=== PATIENT | male | born 1955 | race Caucasian/White ===

== ENCOUNTER 2017-12-06 16:12 | Inpatient (IN) | payer BC ==
[~2017-12-06 16:12] MED LIST: Dexamethasone 20 MG/5 ML VIAL ONE; Glycopyrrolate 0.2 MG/ML 5 ML SYRINGE ONE; ISOVUE-370 76%-LOCM 1 ML ONE; Lidocaine 1% PF 5 ML VIAL ONE; Ondansetron HCl/PF 4 MG/2 ML Vial ONE; PROPOFOL 200 MG/20 ML VIAL ONE; Succinylcholine Chloride 20 MG/ML 10 ml SYRINGE FS ONE
[2017-12-06 17:43] LABS: Protein, Urine (Dipstick) > or equal to 300 mg/dL (Neg-Trace)
[2017-12-06 17:44] LABS: Clarity Opaque (Clear)
[2017-12-06 17:48] LABS: Specific Gravity, Urine 1.024 (1.002-1.036)
[2017-12-06 17:49] LABS: Bilirubin Negative (Negative); Blood, Urine Large (Negative); Glucose, Urine (Dipstick) Unable to Interpret mg/dL (Negative); Leukocyte Unable to Interpret (Negative); Nitrite Unable to Interpret (Negative); Urobilinogen UNABLE TO INTERPRET mg/dL (0.2-1.0)
[2017-12-06 17:50] LABS: RBC/HPF GREATER THAN 50-TNTC HPF (0-3)
[2017-12-06 17:55] LABS: Bacteria/HPF None Seen HPF (None Seen); Hyaline Casts/LPF NONE SEEN LPF (0-3 Hyaline); Squamous Epithelial None Seen HPF (0-3)
[2017-12-06 18:31] LABS: #Basophils 0.1 thou/uL (0.0-0.2); #Eosinphils 0.1 thou/uL (0.0-0.7); #Monocytes 0.6 thou/uL (0.11-0.59); #Neutrophils 7.6 thou/uL (1.40-6.50); %Basophils 0.9 % (0.0-1.0); %Eosinophils 1.3 % (0.0-10.0); %Lymphocytes 19.1 % (21.0-51.0); %Monocytes 5.8 % (0.0-10.0); %Neutrophils 72.9 % (42.0-75.0); Hemoglobin 15.1 g/dL (14.0-18.0); Mean Corpuscular HGB CONC 34.7 g/dL (32.0-36.0); Mean Corpuscular Hemoglobin 32.5 pg (27.0-31.0); Mean Corpuscular Volume 93.8 fl (80.0-94.0); Mean Platelet Volume 7.5 fL (7.4-10.4); Platelet Count 244 thou/uL (130-400); RBC Distribution Width 11.8 % (11.5-14.5); Red Blood Cell (RBC) Count 4.65 mill/uL (4.70-6.10); White Blood Cell (WBC) Count 10.4 thou/uL (4.8-10.8)
[2017-12-06 18:38] LABS: Prothrombin Time 13.7 SEC (12.0-14.7)
[2017-12-06 18:39] LABS: PTT 27.6 SEC (22.9-36.1)
[2017-12-06 18:52] LABS: ALT (SGPT) 21 U/L (8-55); AST (SGOT) 17 U/L (5-34); Albumin 4.2 g/dL (3.5-5.0); Alkaline Phosphatase 79 U/L (40-150); Anion Gap 12 mmol/L (10-20); BUN (Urea Nitrogen) 23 mg/dL (8.4-25.7); Bilirubin, Total 0.3 mg/dL (0.2-1.2); Calc. Creatinine Clearance 0 mL/min (70-130); Calcium 9.2 mg/dL (7.8-10.44); Carbon Dioxide 24 mmol/L (22-29); Chloride 108 mmol/L (98-107); Estimated GFR-MDRD 83; Globulin 2.8 g/dL (2.4-3.5); Glucose 117 mg/dL (70-105); Potassium 4.3 mmol/L (3.5-5.1); Sodium 140 mmol/L (136-145)
[2017-12-06] MEDS ORDERED: Morphine 4 MG/ML VIAL ONE (20:49)
--- NOTE | 2017-12-06 20:49 | CT ---
PRE AND POSTCONTRAST ENHANCED CT IMAGES ABDOMEN AND PELVIS: 12/06/17 HISTORY: Hematuria. Pre and postcontrast enhanced CT images of the abdomen and pelvis demonstrate the lung bases to be un remarkable. No evidence of free intraperitoneal air seen. The liver and spleen are unremarkable. There does appear to be a cyst in the medial aspect of the lef t hepatic lobe without evidence of enhancement. No other hepatic lesions seen. A tiny gallstone is se en. Adrenal glands are unremarkable. Bilateral peripelvic renal cyst seen. There is no definite evidence of renal masses seen. No evidence of hydroureteronephrosis seen. There is a Krishnan catheter within the urinary bladder with a small amount of gas. There is a soft tissue density surrounding the balloon o f the Krishnan catheter which is most compatible with blood clot. No evidence of definite bladder masses seen. The small bowel was unremarkable. A normal appendix is visualized. The colon is unremarkable. Small sclerotic areas seen, one in the left sacral ala and one in the left iliac bone. These may repr esent bone islands although tiny early metastatic lesions cannot be completely excluded. IMPRESSION: Soft tissue density within the urinary bladder most compatible with blood clot. No definite evidence of renal masses seen. The ureters ------- are decompressed without evidence of hydronephrosis. POS: [facility]
[2017-12-06] MEDS ORDERED: Fentanyl 100 MCG/2 ML VIAL ONE ×2 (21:21→23:36)
[2017-12-06] MEDS ORDERED: Fentanyl 250 MCG/5 ML VIAL ONE (21:25)
[2017-12-06] MEDS ORDERED: Zolpidem Tartrate 5 MG TAB PO PRN (22:18)
[2017-12-06] MEDS ORDERED: Sodium Chloride 0.9% 1,000 ML IV SCH ×2 (22:18→23:30)
[2017-12-06] MEDS ORDERED: Mag-Al 1200 mg/1200 mg/30 ML UDCUP PO PRN (22:18)
[2017-12-06] MEDS ORDERED: Acetaminophen 325 MG TAB PO PRN (22:18)
[2017-12-06] MEDS ORDERED: Milk Of Magnesia 30 ML UDCUP PO PRN (22:18)
[2017-12-06] MEDS ORDERED: Senokot 8.6 MG TAB PO PRN (22:18)
[2017-12-06] MEDS ORDERED: HYDROcodone/Acetaminophen 5/325 mg Tablet PO PRN (22:18)
[2017-12-06] MEDS ORDERED: Ondansetron ODT 4 MG TAB PO PRN (22:18)
[2017-12-06] MEDS ORDERED: Loperamide HCl 2 MG CAP PO PRN (22:18)
[2017-12-06] MEDS ORDERED: Ondansetron HCl/PF 4 MG/2 ML Vial IVP PRN (22:18)
[2017-12-06] MEDS ORDERED: SUGAMMADEX SODIUM 500 MG/5 ML VIAL ONE ×2 (23:02→23:05)
[2017-12-06] MEDS ORDERED: Hyoscyamine Sulfate SL 0.125 mg Tablet ONE (23:16)
[2017-12-06] MEDS ORDERED: Morphine 4 MG/ML VIAL SLOW IVP PRN ×2 (23:22)
[2017-12-06] MEDS ORDERED: diphenhydrAMINE 50 MG/ML VIAL IVP PRN (23:22)
[2017-12-06] MEDS ORDERED: Acetaminophen 500 MG TAB PO PRN (23:22)
[2017-12-06] MEDS ORDERED: hydrALAZINE 20 MG/ML VIAL SLOW IVP PRN ×2 (23:22)
[2017-12-06] MEDS ORDERED: Promethazine HCl 25 MG/ML VIAL SLOW IVP PRN (23:29)
[2017-12-06] MEDS ORDERED: HYDROmorphone 2 MG/ML VIAL SLOW IVP PRN (23:29)
[2017-12-06] MEDS ORDERED: Promethazine HCl 25 MG/ML VIAL IM PRN (23:29)
[2017-12-06] MEDS ORDERED: Labetalol HCl 100 MG/20 ML VIAL ONE (23:32)
[2017-12-06] MEDS ORDERED: Labetalol HCl 100 MG/20 ML VIAL SLOW IVP PRN (23:44)
[2017-12-07 00:38] VITALS: BMI 35.2
--- NOTE | 2017-12-07 00:53 | CON ---
DATE OF CONSULTATION: 12/06/2017 REASON FOR CONSULT: Gross hematuria, clot retention. HISTORY OF PRESENT ILLNESS: Mr. Barnes is a pleasant male who presents with his . There is a history of intermittent gross hematuria with spontaneous clearing over the last few months. He denies history of recurrent UTI, history of STDs, decreased urinary caliber, or prior history of urinary retention. An 18-Bhutanese 2-way Krishnan catheter was placed by the emergency room, as they were unable to pass a 3-way Krishnan catheter. There was immediate 300 mL of urine bloody, he had some relief of his retention. He has had intermittent sensation of incomplete void with the Krishnan catheter. I did request a CT scan hematuria protocol, which demonstrates a very large bladder clot. There is no hydronephrosis with bilateral peripelvic renal cyst. At bedside, I did replace his Krishnan catheter 2-way, 24-Bhutanese three-way Krishnan catheter. I was able to evacuate some clots; however, significant clot remains as I am unable to clear his blood clot through a 3-way Krishnan catheter. Therefore, patient advised regarding intraoperative evaluation, evacuation of clots. PAST MEDICAL HISTORY: Remote history of kidney stones, did not require surgical intervention, anxiety. PAST SURGICAL HISTORY: Denies. SOCIAL HISTORY: Lives with his . Good family support. Denies illicit drug use, occasional cigarettes. Works as a pipe construction, often lifts heavy objects, which exacerbates gross hematuria with spontaneous clearing. ALLERGIES: No known drug allergies. HOME MEDICATIONS: Include Zoloft 50 mg 1 p.o. daily. Denies blood thinner use. PHYSICAL EXAMINATION: GENERAL: Patient is somewhat distress due to bladder spasms with urinary retention. Cooperative physical examination. Pleasant. VITAL SIGNS: Stable, afebrile; however, he is somewhat hypertensive, most likely due to pain component. He is 158/90, 81, 18, 97% on room air. HEENT: Grossly unremarkable. HEART: Regular rate. LUNGS: Clear. ABDOMEN: Soft, obese, protuberant. There is some suprapubic tenderness. NEUROLOGIC: No gross distention is grossly appreciated. GENITOURINARY: Preexisting Krishnan catheter was removed and a new 24-Bhutanese three -way Krishnan catheter was placed by myself. I manually irrigated at bedside, however, no significant success of evacuating successfully, minor amount of clots were evacuated. His catheter was attached to a gravity bag. Scrotum is unremarkable. RECTAL: Digital rectal exam demonstrates prostate approximately 35 grams with no discrete nodularity. EXTREMITIES: No cyanosis, clubbing, or edema. IMAGING: CT hematuria protocol. Bilateral parapelvic cysts with no evidence of hydronephrosis. No significant lymphadenopathy. There is a large blood clot, most of the bladder was filled with the blood clot. Prostate volume is approximately 25-30 grams. LABORATORY DATA: White count 10, hemoglobin 15, platelets 244. PTT 27. INR is 1.0. LFTs are unremarkable. Creatinine 0.95. UA demonstrates red, greater than 300 protein, large blood, greater than 50 wbc's, 7-10 wbc's, no epithelial , no bacteria. Culture has been sent. IMPRESSION/PLAN: Mr. Barnes is a pleasant 62-year-old male who presents with intermittent history of gross hematuria, currently in clot retention. As I am unable to irrigate his catheter at bedside, for relief he will go to the OR emergently clarification, possible TURBT, possible TURP was reviewed with patient and family in detail and they desired to proceed without reservation. Tommie on-call to OR. SOFIA
[2017-12-07] MEDS: Sodium Chloride 0.9% 1,000 ML IV SCH ×4 (01:01→15:15)
--- NOTE | 2017-12-07 01:06 | OP ---
DATE OF EXAMINATION: 12/06/2017 PREOPERATIVE DIAGNOSES: Gross hematuria with clot retention, bladder mass. POSTOPERATIVE DIAGNOSIS: Large left lateral bladder tumor measuring 5.0 x 5.[address] PROCEDURE: Cystoscopy, evacuation of clots, transurethral resection of bladder tumor. SURGEON: Oneida Dennison D.O. ANESTHESIA: General. COMPLICATIONS: None apparent. DISPOSITION: To recovery room in stable condition. SPECIMEN: TUR bladder tumor, superficial and deep sent separately. INDICATIONS FOR THE PROCEDURE AND HISTORY: Mr. Barnes is a 62-year-old male who presented to the emergency room due to worsening gross hematuria which has been present for the last few months with spontaneous clearing. He is hemodynamically stable. H&H stable. CT demonstrates a large bladder mass, I was unable to irrigate him free of clot retention in the ER at bedside; therefore, the patient transitioned emergently to the OR for evacuation of clots , possible TURBT, possible TURP. Differential diagnosis and indications reviewed with patient in detail including, but not limited to, bleeding, pain, infection, injury to adjacent organs, bladder perforation, ureteral orifice injury, PE, DVT was reviewed with him in detail and he desired to proceed. DESCRIPTION OF THE PROCEDURE: After an informed consent is signed, the patient is taken to the operating room, placed in a dorsal lithotomy position with the genital area prepped and draped in the usual surgical sterile fashion. Using a 26-Haitian resectoscope with visual obturator, we passed the resectoscope to the level of the bladder. He has bilobar hyperplasia mildly obstructing, he has a high median bar. Upon entering the bladder, we evacuated clots approximately 120-150 mL of clots were evacuated. We then passed the resectoscope with gyrus bipolar bladder loop. With suction irrigation and continuous irrigation, we were able to visualize a large sessile papillary tumor in the left lateral wall , approximately 2 cm superior to the left ureteral orifice. Bilateral clear efflux of urine was noted. No other lesions were found. We perform transurethral resection of bladder tumor, superficial and deep tumors were sent separately. The bed of the tumor was cauterized and we sent a deep muscle layer separately. We obtained great hemostasis. There were some superficial varicosities of the trigone, which was fulgurated. Prostatic urethra demonstrated some oozing due to recent catheterization and instrumentation. A 22 Haitian three-way Krishnan catheter was passed and 30 mL of sterile water insufflated with light pink output. CBI port is plugged. We will monitor his urine output. Disposition to the recovery room in stable condition. SOFIA
--- NOTE | 2017-12-07 01:12 | HP ---
PRIMARY CARE PHYSICIAN: Fidel Matos M.D. REASON FOR ADMISSION: Gross hematuria. HISTORY OF PRESENT ILLNESS: A 62-year-old male with no significant past medical history other than anxiety and depression, who came to emergency room for evaluation of gross hematuria. The patient reports that he has intermittent hematuria for last several months, probably about 6 month. This morning he was having increased amount of blood in urine and he was feeling difficulty urination. He was not having any dysuria, fever, or chills. He reports that he gained weight. He denies any weight loss. He denies any retention of urine. He denies any abdominal pain. The patient also noticed intermittent excretion of blood clot as well in past. He had a CT abdomen and pelvis in the emergency room today, which showed soft tissue density in the urinary bladder. Subsequently, patient was taken to OR and Dr. Dennison did cystoscope and found with a bladder tumor, which was resected. Subsequently, patient was on bladder irrigation and patient is being admitted to surgical floor. Patient received antibiotic therapy with levofloxacin. REVIEW OF SYSTEMS: The following complete review of systems was negative, unless otherwise mentioned in the HPI or below: Constitutional: Weight loss or gain, ability to conduct usual activities. Skin: Rash, itching. Eyes: Double vision, pain. ENT/Mouth: Nose bleeding, neck stiffness, pain, tenderness. Cardiovascular: Palpitations, dyspnea on exertion, orthopnea. Respiratory: Shortness of breath, wheezing, cough, hemoptysis, fever or night sweats. Gastrointestinal: Poor appetite, abdominal pain, heartburn, nausea, vomiting, constipation, or diarrhea. Genitourinary: Urgency, frequency, dysuria, nocturia. Musculoskeletal: Pain, swelling. Neurologic/Psychiatric: Anxiety, depression. Allergy/Immunologic: Skin rash, bleeding tendency. Please see my HPI for pertinent positive and negative. All other review of systems reviewed and negative except as mentioned in the HPI. CURRENT HOME MEDICATIONS: Zoloft 50 mg p.o. daily. PAST MEDICAL HISTORY: Reviewed and negative. PAST SURGICAL HISTORY: Vasectomy. PAST PSYCHIATRIC HISTORY: Anxiety and depression. SOCIAL HISTORY: The patient is smoking about a few cigarettes on a daily basis. He drinks alcohol socially. He denies any illicit drug abuse. FAMILY HISTORY: Heart disease to his father, but no strong family history of premature coronary artery disease, stroke, or cancer. ALLERGIES: No known drug allergy. EMERGENCY ROOM COURSE: Patient was given Levaquin 750 mg, morphine 2 mg. PHYSICAL EXAMINATION: VITAL SIGNS: On arrival, blood pressure 163/114, pulse 102, respiratory rate 20 , temperature 98.1, saturation 95% on room air, weight 112.5 kilograms. GENERAL: Patient is currently alert, awake, no acute distress. HEENT: Head, normocephalic, atraumatic. Eyes: Pupils round, reactive to light. Extraocular muscle intact. ENT, oropharynx within normal limits. Moist mucous membranes. No oral lesion, no pharyngeal erythema, no exudate. NECK: Supple, no JVD, no thyromegaly, no carotid bruit, no jugular venous distention. LUNGS: Clear to auscultation without any rhonchi or rales. CARDIAC: S1, S2 regular without any murmur. ABDOMEN: Soft, bowel sounds present, nontender, nondistended. No organomegaly , no mass, no suprapubic tenderness. GENITALIA: The patient does have a Krishnan catheter in place and the patient is getting bladder irrigation. EXTREMITIES: No edema. NEUROLOGIC: Nonfocal examination. He moves all 4 limbs. Plantar bilateral flexor. PSYCHIATRIC: Normal affect. Lower extremity, no edema. Good peripheral pulsation. Upper extremity, passive movement of all joints are normal. SIGNIFICANT LABS: CT of the abdomen and pelvis showing soft tissue density within the urinary bladder. CBC: WBC 10.4, hemoglobin 15.1, platelet 244. INR 1.0. BMP: Sodium 140, potassium 4.3, chloride 108, carbon dioxide 24, anion gap 12, BUN 23, creatinine 0.93, glucose 117, calcium 9.2. LFT: AST 17, ALT 21, alkaline phosphatase 79, albumin 4.2. Urinalysis consistent with gross hematuria. ASSESSMENT AND PLAN: 1. Gross hematuria. Patient had cystoscopy done and found with a bladder tumor. Other possibility like benign enlargement of prostate, urinary tract infection excluded already. We will follow up on urine culture result. We will continue with the hyoscyamine for bladder spasm, Flomax 0.4 mg p.o. daily. Patient will be given IV fluid with NS at 150 mL per hour. We will control his pain with morphine 2 to 4 mg q.2 hourly p.r.n. basis. Patient will continue to have bladder irrigation as per Urology. Patient already had bladder tumor resection and will follow up on pathology report. We will continue empiric antibiotic therapy with Levaquin and will follow up on urine culture result. 2. Bladder tumor, status post resection by Dr. Dennison. Urology already consulted and they did already procedure for this patient. We will follow up on pathology report. 3. Anxiety and depression. We will continue Zoloft 50 mg p.o. daily. 4. Elevated blood pressure reading. Patient's blood pressure will be monitored closely while in hospital. At this point, we will use hydralazine and labetalol p.r.n. basis. Based on his blood pressure reading, we will decide to start antihypertensive medication. This could be a new blood pressure diagnosis. 5. Deep venous thrombosis prophylaxis. No Lovenox because of bleeding. Only sequential compression device boots. 6. Gastrointestinal prophylaxis, Pepcid 20 mg p.o. b.i.d. 7. Code status: The patient is FULL CODE. The patient's is surrogate decision maker. Disposition plan based on clinical course. We are expecting patient's stay in hospital more than 2 midnights. Plan of care discussed with the patient in detail. MTDD
[2017-12-07] MEDS: Hyoscyamine Sulfate SL 0.125 mg Tablet SL SCH ×3 (01:14→12:05)
[2017-12-07 04:33] LABS: #Basophils 0.1 thou/uL (0.0-0.2); #Lymphocytes 0.9 thou/uL (1.20-3.40); #Monocytes 0.1 thou/uL (0.11-0.59); #Neutrophils 11.9 thou/uL (1.40-6.50); %Basophils 0.4 % (0.0-1.0); %Eosinophils 0.2 % (0.0-10.0); %Lymphocytes 6.6 % (21.0-51.0); %Monocytes 0.9 % (0.0-10.0); %Neutrophils 91.9 % (42.0-75.0); Hemoglobin 13.8 g/dL (14.0-18.0); Mean Corpuscular HGB CONC 33.9 g/dL (32.0-36.0); Mean Corpuscular Hemoglobin 31.9 pg (27.0-31.0); Mean Corpuscular Volume 94.1 fl (80.0-94.0); Mean Platelet Volume 7.6 fL (7.4-10.4); Platelet Count 205 thou/uL (130-400); RBC Distribution Width 11.8 % (11.5-14.5); Red Blood Cell (RBC) Count 4.32 mill/uL (4.70-6.10)
[2017-12-07 04:45] LABS: Anion Gap 9 mmol/L (10-20); BUN (Urea Nitrogen) 16 mg/dL (8.4-25.7); Calc. Creatinine Clearance 152 mL/min (70-130); Calcium 8.3 mg/dL (7.8-10.44); Carbon Dioxide 25 mmol/L (22-29); Chloride 107 mmol/L (98-107); Estimated GFR-MDRD Greater than 90; Glucose 174 mg/dL (70-105); Potassium 4.1 mmol/L (3.5-5.1); Sodium 137 mmol/L (136-145)
[2017-12-07] MEDS ORDERED: Docusate 100 MG CAP PO SCH (09:00)
[2017-12-07] MEDS ORDERED: Tamsulosin HCl 0.4 MG CAP PO SCH (09:00)
[2017-12-07] MEDS ORDERED: Famotidine 20 MG TAB PO SCH (09:00)
--- NOTE | 2017-12-07 14:47 | PDOC.PN ---
- Subjective Encounter Start Date: 12/07/17 Encounter Start Time: 09:20 Pt seen for followup re: bladder tumor. Denies chest pain, shortness of breath , fevers or chills. No nausea or vomiting. - Objective Resuscitation Status: Resuscitation Status FULL:Full Resuscitation MAR Reviewed: Yes Vital Signs & Weight: Vital Signs (12 hours) Temp Pulse Resp BP Pulse Ox 12/07/17 13:43 96 12/07/17 11:13 97.9 F 83 18 106/64 96 12/07/17 08:00 97.9 F 83 18 96 12/07/17 07:09 98.2 F 68 18 118/72 96 12/07/17 05:30 80 16 108/68 12/07/17 03:37 98.2 F 90 18 123/68 95 Weight Weight 239 lb I&O: 12/06/17 12/07/17 12/08/17 06:59 06:59 06:59 Intake Total 1240 Output Total 1550 Balance -310 Result Diagrams: 12/07/17 03:30 12/07/17 03:30 Additional Labs: Labs reviewed by me Phys Exam - Physical Examination Constitutional: NAD HEENT: moist MMs, sclera anicteric, oral pharynx no lesions, 2+ tonsils Neck: no nodes, no JVD, supple, full ROM Respiratory: no wheezing, no rales, no rhonchi, clear to auscultation bilateral Cardiovascular: RRR, no rub Gastrointestinal: soft, non-tender, no distention, positive bowel sounds Bladder catheter+, urine output clear Neurological: moves all 4 limbs Psychiatric: normal affect, A&O x 3 Dx/Plan (1) Bladder tumor Code(s): D49.4 - NEOPLASM OF UNSPECIFIED BEHAVIOR OF BLADDER Status: Acute Comment: s/p excision (2) Hematuria Code(s): R31.9 - HEMATURIA, UNSPECIFIED Status: Resolved Comment: busby output clear (3) Tobacco abuse Code(s): Z72.0 - TOBACCO USE Status: Chronic Comment: counseled re: tobacco cessation (4) Anxiety and depression Code(s): F41.9 - ANXIETY DISORDER, UNSPECIFIED; F32.9 - MAJOR DEPRESSIVE DISORDER, SINGLE EPISODE, UNSPECIFIED Status: Chronic Comment: stable, continue sertraline - Plan * . Review of Systems - Medications/Allergies Allergies/Adverse Reactions: Allergies Allergy/AdvReac Type Severity Reaction Status Date / Time No Known Drug Allergies Allergy Verified 12/07/17 00:55 Medications: Current Medications Acetaminophen (Tylenol) 500 mg PO Q4H PRN PRN Reason: GROSS/Fever > 101F/mild pain(1-3) Hydrocodone Bitart/Acetaminophen ([place] 5/325) 1 tab PO Q4H PRN PRN Reason: Moderate Pain (4-6) Al Hydroxide/Mg Hydroxide (Maalox) 30 ml PO Q6H PRN PRN Reason: Heartburn or Indigestion Diphenhydramine HCl (Benadryl) 25 mg IVP Q6H PRN PRN Reason: Itching Docusate Sodium (Colace) 100 mg PO BID [facility] Last Admin: 12/07/17 08:49 Dose: 100 mg Famotidine (Pepcid) 20 mg PO BID [facility] Last Admin: 12/07/17 08:49 Dose: 20 mg Hydralazine HCl (Apresoline) 20 mg SLOW IVP Q4H PRN PRN Reason: SBP greater than 160/100 Hyoscyamine Sulfate (Levsin Sl) 0.25 mg SL Q6HR [facility] Last Admin: 12/07/17 12:05 Dose: 0.25 mg Levofloxacin 750 mg/ Device 150 mls @ 100 mls/hr IVPB Q24HR [facility] Sodium Chloride (Normal Saline 0.9%) 1,000 mls @ 150 mls/hr IV .Q6H40M [facility] Last Admin: 12/07/17 06:31 Dose: 1,000 mls Labetalol HCl (Normodyne) 10 mg SLOW IVP Q2H PRN PRN Reason: SBP Greater Than 180 Loperamide HCl (Imodium) 2 mg PO PRN PRN PRN Reason: Diarrhea/Loose Stools Magnesium Hydroxide (Milk Of Magnesium) 30 ml PO DAILYPRN PRN PRN Reason: Constipation Morphine Sulfate (Morphine) 2 mg SLOW IVP Q2H PRN PRN Reason: Moderate Pain (4-6) Morphine Sulfate (Morphine) 4 mg SLOW IVP Q2H PRN PRN Reason: Severe Pain (7-10) Ondansetron HCl (Zofran Odt) 4 mg PO Q6H PRN PRN Reason: Nausea/Vomiting Ondansetron HCl (Zofran) 4 mg IVP Q6H PRN PRN Reason: Nausea/Vomiting Senna (Senokot) 2 tab PO HSPRN PRN PRN Reason: Constipation Sertraline HCl (Zoloft) 50 mg PO DAILY [facility] Last Admin: 12/07/17 08:50 Dose: 50 mg Sodium Chloride (Flush - Normal Saline) 10 ml IVF Q12HR [facility] Last Admin: 12/07/17 08:50 Dose: 10 ml Sodium Chloride (Flush - Normal Saline) 10 ml IVF PRN PRN PRN Reason: Saline Flush Tamsulosin HCl (Flomax) 0.4 mg PO DAILY [facility] Last Admin: 12/07/17 08:49 Dose: 0.4 mg Zolpidem Tartrate (Ambien) 5 mg PO HSPRN PRN PRN Reason: Insomnia
[2017-12-07 16:21] VITALS: BP 129/76; TEMP 97.8
--- NOTE | 2017-12-08 00:51 | DIS ---
DATE OF ADMISSION: 12/06/2017 DATE OF DISCHARGE: 12/07/2017 ADMITTING DIAGNOSIS: Gross hematuria with clot retention DISCHARGE DIAGNOSIS: Gross hematuria secondary to large left lateral bladder tumor consistent with transitional cell carcinoma and visual inspection. DISPOSITION: Home. CONDITION: Stable to self-care with excellent family support. FOLLOWUP: followup appointment Friday at 8:15 a.m. for catheter removal. DISCHARGE MEDICATIONS: Include Flomax 0.4mg one p.o. daily #30 with 5 refills, ciprofloxacin 500 mg one p.o. b.i.d. for 7 days, Colace 100 mg #30 one p.o. b.i.d. p.r.n., VESIcare 5 mg one p.o. daily #5 for bladder spasm, [place] 5/325 1- 2 p.o. q.6-8 hours p.r.n. DISCHARGE INSTRUCTIONS: Krishnan catheter leg bag gravity bag instruction provided. No heavy lifting, strenuous activity, no aspirin or ibuprofen products advised. BRIEF HOSPITAL COURSE: Mr. Barnes is a pleasant 62-year-old male who presented to the emergency room yesterday due to gross hematuria with clot retention. I was unable to irrigate him free at the bedside. Therefore, he went to the operating room emergently, evacuation of clots was performed, subsequently he was found to have a large left lateral bladder tumor which was successfully resected complete with good hemostasis. Incidentally noted is bilobar hyperplasia mildly obstructing. He is placed on Flomax to be discharged home as well. I informed them that the cystoscopic findings are consistent with TCC and have been informed regarding treatment options pending final pathology. The patient is stable to go home as his CBI was held this morning with clear urine output with no significant gross hematuria. His labs are stable with hemoglobin 13, creatinine 0.6. Urine culture preliminary negative. MTDD
--- NOTE | 2017-12-09 12:46 | EKG ---
Test Reason : HEMATURIA Blood Pressure : / mmHG Vent. Rate : 073 BPM Atrial Rate : 073 BPM P-R Int : 142 ms QRS Dur : 096 ms QT Int : 416 ms P-R-T Axes : 053 -14 005 degrees QTc Int : 458 ms Normal sinus rhythm Possible Lateral infarct , age undetermined Abnormal ECG Confirmed by FERNANDA MURGUIA, MARGARET ([id number]), purchasing expeditor HAYDEN ARRINGTON ([id number]) on 12/09/2017 12:45:50 PM Referred By: Confirmed By:MARGARET MICHAEL MD
== END 2017-12-07 17:12 | disposition home or self-care (01) | DRG 670 ==
LOC: ERS 16:12 → SURG A 19:45
PROVIDERS: ADMIT Family Medicine; ATTEND Family Medicine
PROC: 0TBB8ZZ Excision of Bladder, Via Natural or Artificial Opening Endoscopic (ICD-10-PCS; principal; 2017-12-06)
PROC: 0T9 Urinary System, Drainage (ICD-10-PCS; 2017-12-06)
DX: C67.9 Malignant neoplasm of bladder, unspecified (principal); Z71.6 Tobacco abuse counseling; F41.9 Anxiety disorder, unspecified; F32.9 Major depressive disorder, single episode, unspecified; F17.210 Nicotine dependence, cigarettes, uncomplicated; R31.0 Gross hematuria
CPT/HCPCS: 36415; 51703; 74178; 80048; 80053; 81003; 81015; 85025; 85610; 85730; 86850; 86900; 86901; 87086; 93005; 96365; 96375; A4216; J1100; J1956; J2001; J2270; J2405; J2704; J3010

== ENCOUNTER 2019-01-27 09:07 | Outpatient (CLI) | payer BC ==
[2019-01-27 10:00] LABS: Estimated GFR-MDRD - POC Greater than 90
[2019-01-27 10:13] LABS: ALT (SGPT) 24 U/L (8-55); AST (SGOT) 16 U/L (5-34); Albumin 4.1 g/dL (3.4-4.8); Alkaline Phosphatase 102 U/L (40-150); Anion Gap 13 mmol/L (10-20); BUN (Urea Nitrogen) 22 mg/dL (8.4-25.7); Bilirubin, Total 0.4 mg/dL (0.2-1.2); Calc. Creatinine Clearance 0 mL/min (70-130); Calcium 9.2 mg/dL (7.8-10.44); Carbon Dioxide 24 mmol/L (23-31); Cardiac Risk 3.7 (Less than 4.5); Chloride 109 mmol/L (98-107); Cholesterol 183 mg/dl (< 200 Desired); Estimated GFR-MDRD Greater than 90; Globulin 2.9 g/dL (2.4-3.5); Glucose 108 mg/dL (80-115); HDL Cholesterol 50 mg/dL (>60 Neg Risk); LDL Cholesterol, Calculated 122 mg/dL; Potassium 4.3 mmol/L (3.5-5.1); Sodium 142 mmol/L (136-145); Triglycerides 55 mg/dL (Less than 150)
[2019-01-27 10:43] LABS: Bilirubin Negative (Negative); Blood, Urine Negative (Negative); Clarity Clear (Clear); Glucose, Urine (Dipstick) Negative (Negative); Leukocyte Negative (Negative); Nitrite Negative (Negative); Protein, Urine (Dipstick) Negative (Neg-Trace); Urobilinogen 0.2 mg/dL (Less than 2)
[2019-01-27 10:53] LABS: #Basophils 0.1 thou/uL (0.0-0.2); #Eosinphils 0.4 thou/uL (0.0-0.7); #Lymphocytes 2.7 thou/uL (1.20-3.40); #Monocytes 0.5 thou/uL (0.11-0.59); %Basophils 0.8 % (0.0-1.0); %Eosinophils 5.5 % (0.0-10.0); %Lymphocytes 34.8 % (21.0-51.0); %Monocytes 6.7 % (0.0-10.0); %Neutrophils 52.2 % (42.0-75.0); Hemoglobin 15.8 g/dL (14.0-18.0); Mean Corpuscular HGB CONC 34.2 g/dL (32.0-36.0); Mean Corpuscular Hemoglobin 30.8 pg (27.0-31.0); Mean Corpuscular Volume 90.2 fL (78.0-98.0); Mean Platelet Volume 8.2 fL (7.4-10.4); Platelet Count 220 thou/uL (130-400); RBC Distribution Width 12.4 % (11.5-14.5); Red Blood Cell (RBC) Count 5.12 mill/uL (4.70-6.10); White Blood Cell (WBC) Count 7.7 thou/uL (4.8-10.8)
[2019-01-27 11:16] LABS: Bacteria/HPF None Seen HPF (None Seen); Epithelial Cast None Seen LPF (None Seen); RBC/HPF None Seen HPF (0-3); Squamous Epithelial None Seen HPF (0-3); WBC/HPF 0-3 HPF (0-3)
[2019-01-27 11:20] LABS: PSA-Asymptomatic (SCREENING) 2.1 ng/mL (0-4.0); Thyroid Stimulating Hormone 1.2766 uIU/mL (0.35-4.94)
--- NOTE | 2019-01-27 11:20 | CT ---
CT abdomen and pelvis with IV contrast HISTORY: Abnormal CT scan. Hematuria. COMPARISON: 12/06/2017. FINDINGS: The lung bases are clear. Small cyst in the left liver lobe is stable. Parapelvic cysts ass ociated with each kidney are again demonstrated. Is 0.2 cm calculus is present within a nondilated calyx at the anterior aspect of the left kidney. Ea ch renal collecting system and ureter are decompressed. Nonspecific lymph nodes throughout the retroperitoneum. Postoperative changes at the right upper scro shreyas. Small bone island at the left iliac bone adjacent to the sacroiliac joint is stable. Urinary bladder incompletely distended. No significant abnormalities. Diverticula arise from the colon without adjacent inflammation. IMPRESSION: Tiny nonobstructing left renal calculus. Diverticulosis. No diverticulitis. Chronic-type findings are stable. No acute abnormalities are demonstrated.
== END 2019-01-27 09:08 | disposition home or self-care (01) ==
LOC: SCSCT 09:07
PROVIDERS: ATTEND Family Medicine
DX: R93.89 Abnormal findings on diagnostic imaging of other specified body structures (principal); C67.9 Malignant neoplasm of bladder, unspecified; R39.15 Urgency of urination; R35.1 Nocturia; N20.0 Calculus of kidney; K57.90 Diverticulosis of intestine, part unspecified, without perforation or abscess without bleeding
CPT/HCPCS: 36415; 74177; 80053; 80061; 81001; 84443; 85025; 87086; 88121; G0103

== ENCOUNTER 2019-06-09 09:22 | Outpatient (CLI) | payer BC ==
[2019-06-09 14:14] LABS: Hemoglobin 16.1 g/dL (14.0-18.0); Mean Corpuscular HGB CONC 33.3 g/dL (32.0-36.0); Mean Corpuscular Hemoglobin 31.4 pg (27.0-31.0); Mean Corpuscular Volume 94.2 fL (78.0-98.0); Mean Platelet Volume 8.1 fL (7.4-10.4); Platelet Count 240 thou/uL (130-400); RBC Distribution Width 12.7 % (11.5-14.5); Red Blood Cell (RBC) Count 5.13 mill/uL (4.70-6.10); White Blood Cell (WBC) Count 8.7 thou/uL (4.8-10.8)
[2019-06-09 14:20] LABS: INR-International Normal Ratio 0.9; PTT 27.7 SEC (22.9-36.1); Prothrombin Time 12.6 SEC (12.0-14.7)
[2019-06-09 14:26] LABS: Bacteria/HPF None Seen HPF (None Seen); Bilirubin Negative (Negative); Blood, Urine Negative (Negative); Clarity Clear (Clear); Glucose, Urine (Dipstick) Normal (Negative); Leukocyte 25 Leu/uL (Negative); Nitrite Negative (Negative); Protein, Urine (Dipstick) Negative (Neg-Trace); RBC/HPF 0-3 HPF (0-3); Squamous Epithelial None Seen HPF (0-3); Urobilinogen Normal mg/dL (Less than 2); WBC/HPF 0-3 HPF (0-3)
--- NOTE | 2019-06-09 14:34 | RAD ---
PA AND LATERAL CHEST: HISTORY: Preop evaluation. FINDINGS: The heart size is normal. The lungs are well expanded without focal areas of consolidation, pneumotho races or pleural effusions. No acute osseous abnormalities are seen. IMPRESSION: No radiographic evidence of acute cardiopulmonary process. POS: [facility]
[2019-06-09 14:44] LABS: Anion Gap 13 mmol/L (10-20); BUN (Urea Nitrogen) 17 mg/dL (8.4-25.7); Calc. Creatinine Clearance 0 mL/min (70-130); Calcium 9.4 mg/dL (7.8-10.44); Carbon Dioxide 24 mmol/L (23-31); Chloride 103 mmol/L (98-107); Estimated GFR-MDRD 75; Glucose 104 mg/dL (80-115); Potassium 4.2 mmol/L (3.5-5.1); Sodium 136 mmol/L (136-145)
== END 2019-06-09 09:23 | disposition home or self-care (01) ==
LOC: LABBT 09:22
PROVIDERS: ATTEND Urology
DX: Z01.818 Encounter for other preprocedural examination (principal); Z12.5 Encounter for screening for malignant neoplasm of prostate; C67.9 Malignant neoplasm of bladder, unspecified; N40.1 Benign prostatic hyperplasia with lower urinary tract symptoms; N20.0 Calculus of kidney; R39.15 Urgency of urination; R35.1 Nocturia; N28.1 Cyst of kidney, acquired; Z87.891 Personal history of nicotine dependence
CPT/HCPCS: 71046; 80048; 81001; 85027; 85610; 85730; 87086; 93005; 93010

== ENCOUNTER 2019-06-09 09:59 | Outpatient (CLI) | payer BC ==
[2019-06-09 11:19] LABS: Estimated GFR-MDRD - POC Greater than 90
[2019-06-09] MEDS ORDERED: Iopamidol 370 76% 100 ML VIAL ONE (11:34)
--- NOTE | 2019-06-09 14:10 | CT ---
CT ABDOMEN AND PELVIS WITH AND WITHOUT IV CONTRAST: 06/09/2019 PROVIDED CLINICAL HISTORY: History of bladder cancer. COMPARISON: CT examinations dated 12/06/2017 and 01/27/2019. FINDINGS: The visualized lung bases are free of significant opacity. There is a stable cyst present within the medial segment of the left hepatic lobe. Parapelvic renal c ysts and tiny, nonobstructing left renal calculi are demonstrated. The solid abdominal organs demonst rate an otherwise unremarkable CT appearance. A small gallstone is seen. There is no bowel dilatation, inflammatory fat stranding, free fluid or lymph node enlargement appare nt. Occasional vascular calcifications are seen. The delayed images demonstrate no evidence for filling defect involving the renal collecting systems, ureters or urinary bladder. The osseous structures demonstrate no concerning lytic or blastic lesions. Stable sclerotic foci with in the left sacral ala and left medial iliac bone. IMPRESSION: No evidence for an acute process. POS: [facility]
== END 2019-06-09 10:00 | disposition home or self-care (01) ==
LOC: CT 09:59
PROVIDERS: ATTEND Urology
DX: C67.9 Malignant neoplasm of bladder, unspecified (principal)
CPT/HCPCS: 71046; 74178; 80048; 81001; 82565; 85027; 85610; 85730; 87086; 93005; Q9967

== ENCOUNTER 2019-06-23 06:01 | Observation (INO) | payer BC ==
[2019-06-09 13:40] VITALS: BMI 37.5
[2019-06-23] MEDS ORDERED: Fentanyl 100 MCG/2 ML VIAL ONE ×2 (08:22→11:05)
[2019-06-23] MEDS ORDERED: Iothalamate Meglumine 60% 50 ML VIAL FS ONE (08:40)
[2019-06-23] MEDS ORDERED: ePHEDrine/0.9% NaCl/PF SYRINGE 50 mg/10 ml ONE (09:45)
[2019-06-23] MEDS ORDERED: Ondansetron PF 4 MG/2 ML Vial ONE (09:45)
[2019-06-23] MEDS ORDERED: PHENYLEPHRINE-NS 100 MCG/ML 10 ML SYRINGE ONE (09:45)
[2019-06-23] MEDS ORDERED: Ketorolac Tromethamine 30 MG/ML VIAL ONE (09:45)
[2019-06-23] MEDS ORDERED: PROPOFOL 200 MG/20 ML VIAL ONE (09:45)
[2019-06-23] MEDS ORDERED: Lidocaine 1% PF 5 ML VIAL ONE (09:45)
[2019-06-23] MEDS ORDERED: Dexamethasone 20 MG/5 ML VIAL ONE (09:45)
[2019-06-23] MEDS ORDERED: Oxybutynin 5 MG TAB ONE (10:03)
[2019-06-23] MEDS ORDERED: Phenazopyridine HCl 97.5 MG TABLET ONE (10:03)
--- NOTE | 2019-06-23 11:42 | OP ---
DATE OF PROCEDURE: 06/23/2019 PREOPERATIVE DIAGNOSIS: 1. A 64-year-old male with history of low-grade transitional cell carcinoma, ongoing tobacco abuse, status post transurethral resection of bladder tumour. 2. Positive cytology with small bladder tumor recurrence, right lateral wall. 3. History of benign prostatic hyperplasia, unable to tolerate benign prostatic hyperplasia medications due to dizziness. POSTOPERATIVE DIAGNOSES: 1. A 64-year-old male with history of low-grade transitional cell carcinoma, ongoing tobacco abuse, status post transurethral resection of bladder tumour. 2. Positive cytology with small bladder tumor recurrence, right lateral wall. 3. History of benign prostatic hyperplasia, unable to tolerate benign prostatic hyperplasia medications due to dizziness. PROCEDURES PERFORMED: Cystoscopy, bladder biopsy of bladder lesion x2, right lateral wall, fulguration of biopsy site, fulguration of bladder trigone, meatal dilatation. INDICATIONS FOR PROCEDURE AND HISTORY: Mr. Barnes is a 64-year-old male with history of TCC of the bladder, status post TURBT due to positive cytology, who presents today for bladder biopsy with a subtle lesion in the right lateral wall. He also has history of BPH, unable to tolerate BPH medications. Therefore, I offered UroLift, which he desires to proceed. Risks and complications of the procedure have been discussed with the patient and his in extensive detail including bleeding, pain, infection, chronic pain, injury to adjacent organs that can be associated with UroLift and possible urethral bladder calculi, injury to adjacent organs such as neurovascular and vasculature. All questions were answered to their satisfaction and they desired to proceed. Alternative options of observation for BPH component were also reviewed. DESCRIPTION OF PROCEDURE: After an informed consent was signed, the patient was taken to the operating room, placed in a dorsal lithotomy position with the genital area prepped and draped in the usual surgical sterile fashion. A 21-Sudanese cystoscope was utilized to stage his urethra, which demonstrated bilobar hyperplasia of the prostate with moderate obstruction. Bladder was entered, which demonstrated the UOs in normal orthotopic position. A 30-degree and a 70-degree lens was utilized to perform cystoscopy, which demonstrated the only lesion appreciated was in the right lateral wall about 1 to 2 cm distal to the right ureteral orifice. It was a superficial papillary recurrence, appears low-grade, surface area of the 2 lesions is about 3 to 4 mm each. Using an endoscopic rigid biopsy, we biopsied the lesion intact, complete. At this time, we transitioned to a resectoscope 26- Sudanese with a visual obturator. There was some resistance at the meatus. Therefore, I did dilate his meatus from 24 to 30 uneventfully and subsequently, the resectoscope passed without difficulty. At this time, we fulgurated the bladder biopsy site. Resectoscope was also utilized as he has telangiectasia of the bladder mucosa vasculature of the trigone. These were prominent vasculature blood vessels. Therefore, I did fulgurate his trigone, where the telangiectasia of the bladder mucosa vasculature was noted. We fulgurated the trigone with good hemostasis. No tumor was seen in this region. At this time, we transitioned to ACMI scope with a visual obturator. We performed, a UroLift implant reducing his obstructing lateral lobes. A total of 6 implants were placed, three on each side. The implants most proximal to the bladder neck were stacked to open his bladder neck. None of the implants were on the bladder mucosa or bladder neck. He tolerated the procedure well. Intraoperative photos were taken. A 16-Sudanese three-way Krishnan catheter was placed with gravity bag, CBI port plugged. The patient will be monitored postop , anticipate discharge with indwelling Krishnan catheter and will see me next week for catheter removal and review pathology. The patient will be discharged with antibiotic coverage until Krishnan catheter removal and followup as outpatient. Job ID: [id number] [facility]
[2019-06-23 12:47] LABS: Hemoglobin 14.8 g/dL (14.0-18.0)
[2019-06-23] MEDS ORDERED: Phenazopyridine HCl 97.5 MG TABLET PO PRN (13:36)
[2019-06-23] MEDS ORDERED: HYDROcodone/Acetaminophen 5/325 mg Tablet PO PRN (13:36)
[2019-06-23] MEDS ORDERED: Mag-Al 1200 mg/1200 mg/30 ML UDCUP PO PRN (13:36)
[2019-06-23] MEDS ORDERED: Bisacodyl 10 MG SUPP PR PRN (13:36)
[2019-06-23] MEDS ORDERED: diphenhydrAMINE 50 MG/ML VIAL IVP PRN (13:36)
[2019-06-23] MEDS ORDERED: Zolpidem Tartrate 5 MG TAB PO PRN (13:36)
[2019-06-23] MEDS ORDERED: hydrALAZINE 20 MG/ML VIAL SLOW IVP PRN ×2 (13:36)
[2019-06-23] MEDS ORDERED: Ondansetron PF 4 MG/2 ML Vial IVP PRN (13:36)
[2019-06-23] MEDS: Sodium Chloride 0.9% 1,000 ML IV SCH (15:48)
[2019-06-23] MEDS: Oxybutynin 5 MG TAB PO PRN (17:52)
[2019-06-23] MEDS: Docusate 100 MG CAP PO SCH (19:41)
[2019-06-23] MEDS ORDERED: Famotidine/PF 20 mg/2ml Vial SLOW IVP SCH (21:00)
[2019-06-23] MEDS: HYDROcodone/Acetaminophen 5/325 mg Tablet PO PRN (23:03)
[2019-06-24] MEDS: Oxybutynin 5 MG TAB PO PRN (01:46)
[2019-06-24] MEDS: Sodium Chloride 0.9% 1,000 ML IV SCH ×2 (01:48→08:46)
[2019-06-24 05:42] LABS: #Lymphocytes 2.3 thou/uL (1.20-3.40); #Monocytes 0.7 thou/uL (0.11-0.59); #Neutrophils 9.5 thou/uL (1.40-6.50); %Basophils 0.1 % (0.0-1.0); %Eosinophils 0.2 % (0.0-10.0); %Lymphocytes 18.4 % (21.0-51.0); %Monocytes 5.9 % (0.0-10.0); %Neutrophils 75.5 % (42.0-75.0); Hemoglobin 14.8 g/dL (14.0-18.0); Mean Corpuscular HGB CONC 32.5 g/dL (32.0-36.0); Mean Corpuscular Hemoglobin 31.6 pg (27.0-31.0); Mean Corpuscular Volume 97.2 fL (78.0-98.0); Platelet Count 230 thou/uL (130-400); RBC Distribution Width 12.8 % (11.5-14.5); Red Blood Cell (RBC) Count 4.69 mill/uL (4.70-6.10); White Blood Cell (WBC) Count 12.5 thou/uL (4.8-10.8)
[2019-06-24] MEDS: HYDROcodone/Acetaminophen 5/325 mg Tablet PO PRN (06:52)
--- NOTE | 2019-06-24 07:24 | DIS ---
DATE OF ADMISSION: 06/23/2019 DATE OF DISCHARGE: 06/24/2019 ADMITTING DIAGNOSIS: History of bladder cancer with recurrent history of benign prostatic hyperplasia. PROCEDURES PERFORMED: Cystoscopy, bladder biopsy, fulguration of trigone, UroLift implant. DISPOSITION: To home with indwelling Krishnan catheter to gravity. Follow up with me on Friday for catheter removal. DISCHARGE MEDICATIONS: Include; 1. Tramadol 50 mg 1 to 2 p.o. q.6 hours p.r.n. 2. VESIcare 5 mg one p.o. daily. 3. Ciprofloxacin 500 mg one p.o. b.i.d. until followup appointment. BRIEF HOSPITAL COURSE: Mr. Barnes is a pleasant 64-year-old male, whom I have been following for history of bladder cancer. He had a small recurrence with positive cytology, which was treated. He has a history of BPH, unable to tolerate BPH medications and underwent concomitant UroLift surgery. Surgery was uneventful, he did have some prominent vascularity of the trigone, which was fulgurated. Postoperatively, he did have hematuria. Although, the catheter is draining okay, as the patient lives far away as I had concern regarding possible clots, I did monitor him overnight with continuous bladder irrigation. He was on a very low rate. He was held this morning with subsequent nico yellow urine. His CBC, H and H are stable from pre to postop with no active bleeding appreciated. Disposition is to home with self-care with excellent family support. CONDITION: Stable. Job ID: [id number]
[2019-06-24 07:59] VITALS: BP 155/77; TEMP 98.5
[2019-06-24] MEDS: Docusate 100 MG CAP PO SCH (08:06)
[2019-06-24] MEDS ORDERED: Tamsulosin HCl 0.4 MG CAP PO SCH (09:00)
[2019-06-24] MEDS ORDERED: FLU VACC QS2019-20(6MOS UP)/PF 60 MCG/0.5 ML SYRINGE IM ONE (09:00)
[2019-06-24] MEDS ORDERED: Loratadine 10 MG TAB PO SCH (09:00)
[2019-06-24] MEDS ORDERED: Atorvastatin Calcium 10 MG TAB PO SCH (09:00)
[2019-06-24] MEDS ORDERED: Famotidine 20 MG TAB PO SCH (09:00)
[2019-06-24] MEDS ORDERED: Prevnar 13-Val Conj/PF 0.5 ML SYRINGE IM ONE (09:00)
== END 2019-06-24 10:40 | disposition home or self-care (01) ==
LOC: SDC 06:01 → SURG A 14:14
PROVIDERS: ADMIT Urology; ATTEND Urology
PROC: 0TBB8ZX Excision of Bladder, Via Natural or Artificial Opening Endoscopic, Diagnostic (ICD-10-PCS; principal; 2019-06-24)
PROC: 0TBB8ZX Excision of Bladder, Via Natural or Artificial Opening Endoscopic, Diagnostic (ICD-10-PCS; 2019-06-24)
PROC: 0TBB8ZX Excision of Bladder, Via Natural or Artificial Opening Endoscopic, Diagnostic (ICD-10-PCS; 2019-06-24)
PROC: 0T7D8DZ Dilation of Urethra with Intraluminal Device, Via Natural or Artificial Opening Endoscopic (ICD-10-PCS; 2019-06-24)
PROC: 0T7D8DZ Dilation of Urethra with Intraluminal Device, Via Natural or Artificial Opening Endoscopic (ICD-10-PCS; 2019-06-24)
DX: N32.89 Other specified disorders of bladder (principal); N40.1 Benign prostatic hyperplasia with lower urinary tract symptoms; N13.8 Other obstructive and reflux uropathy; R39.15 Urgency of urination; R35.1 Nocturia; F41.9 Anxiety disorder, unspecified; F17.210 Nicotine dependence, cigarettes, uncomplicated; Z79.899 Other long term (current) drug therapy; Z85.51 Personal history of malignant neoplasm of bladder
CPT/HCPCS: 36415; 76000; 85014; 85018; 85025; 88305; 90471; 90670; 90686; 96361; 96374; 96375; C1889; G0008; G0009; G0378; J1100; J1885; J1956; J2001; J2405; J2704; J3010; S0028

== ENCOUNTER 2019-11-01 09:01 | Outpatient (CLI) | payer BC ==
[2019-11-01 09:40] LABS: Estimated GFR-MDRD - POC Greater than 90
--- NOTE | 2019-11-01 12:28 | CT ---
CT ABDOMEN AND PELVIS WITH AND WITHOUT CONTRAST: Date: 11/01/2019 Axial tomograms obtained with and without contrast. Postcontrast images were obtained in poral venous and delayed venous phase. INDICATION: Follow-up for bladder cancer. Malignant tumor removed from bladder in 2018. Transitional cell carcino ma of bladder. Comparison made to recent CT abdomen and pelvis dated 06/09/2019. FINDINGS: Lung bases clear. Hepatic cyst in left lobe of liver is stable. Liver, spleen, and pancreas are unremarkable. Stomach a nd duodenum unremarkable. Adrenal glands normal. Kidneys unremarkable. Evidence of parapelvic cysts are again noted bilaterally, which compress the ce ntral collecting structures on the delayed sequence. These are stable. On the noncontrast study, there is a small 3.0 mm calculus in the upper pole collecting structures of the left kidney which is stable from 06/09/2019. Urinary bladder appears unremarkable on both pre and postcontrast images. The prostate is mildly prom inent and does indent the floor of the bladder, although the appearance is unchanged when compared to 06/09/2019. Prostatic calcifications are again noted. The osseous structures remain stable in appearance. A focal sclerotic lesion in the left ilium is sta ble. Degenerative spine changes again noted. Bowel loops unremarkable. Aorta normal caliber. No mass or adenopathy identified. IMPRESSION: There are stable findings as described above. No acute interval change. POS: AGW
== END 2019-11-01 09:02 | disposition home or self-care (01) ==
LOC: SCSCT 09:01
PROVIDERS: ATTEND Urology
DX: C67.9 Malignant neoplasm of bladder, unspecified (principal); N20.0 Calculus of kidney; N28.1 Cyst of kidney, acquired; K76.89 Other specified diseases of liver; M47.819 Spondylosis without myelopathy or radiculopathy, site unspecified
CPT/HCPCS: 74178; 82565

== ENCOUNTER 2020-06-21 06:38 | Outpatient (CLI) | payer BC ==
[2020-06-21 16:59] LABS: Bilirubin Neg (Negative); Blood, Urine Negative (Negative); Clarity Clear (Clear); Glucose, Urine (Dipstick) Normal (Negative); Ketone, Urine Negative (Negative); Leukocyte 25 (Negative); Nitrite Negative (Negative); Protein, Urine (Dipstick) Negative (Neg-Trace); Urobilinogen Normal mg/dL (Less than 2)
[2020-06-21 17:53] LABS: Anion Gap 16 mmol/L (10-20); BUN (Urea Nitrogen) 15 mg/dL (8.4-25.7); Calc. Creatinine Clearance 0 mL/min (70-130); Calcium 9.4 mg/dL (7.8-10.44); Carbon Dioxide 24 mmol/L (23-31); Chloride 103 mmol/L (98-107); Estimated GFR-MDRD Greater than 90; Glucose 95 mg/dL (80-115); Potassium 4.6 mmol/L (3.5-5.1); Sodium 138 mmol/L (136-145)
[2020-06-21 18:06] LABS: Hemoglobin 16.7 g/dL (14.0-18.0); Mean Corpuscular HGB CONC 33.8 G/DL (32.0-36.0); Mean Corpuscular Hemoglobin 31.4 PG (27.0-33.0); Mean Corpuscular Volume 92.9 fl (80.0-100.0); Mean Platelet Volume 11.1 fl (7.4-10.4); Platelet Count 225 10x3/uL (130-400); RBC Distribution Width 12.6 % (11.5-14.5); Red Blood Cell (RBC) Count 5.32 10x6/uL (4.40-5.80); White Blood Cell (WBC) Count 9.4 10x3/uL (4.5-11.0)
[2020-06-21 18:34] LABS: PTT 30.8 sec (22.0-33.0); Prothrombin Time 10.9 sec (9.5-12.1)
[2020-06-21 18:51] LABS: RBC/HPF 0-3 HPF (0-3)
[2020-06-21 18:52] LABS: Bacteria/HPF Rare-Few HPF (None Seen); Mucous/LPF 1+ LPF (<2+)
[2020-06-22 03:08] LABS: SARS-CoV-2 MS2 Positive; SARS-CoV-2 N Gene Negative; SARS-CoV-2 S Gene Negative; SARS-CoV-2 by NAA Not Detected (NotDetected); SARS-CoV-2 orf1ab Negative
--- NOTE | 2020-06-23 07:09 | EKG ---
Test Reason : Blood Pressure : / mmHG Vent. Rate : 074 BPM Atrial Rate : 074 BPM P-R Int : 150 ms QRS Dur : 112 ms QT Int : 402 ms P-R-T Axes : 056 -22 008 degrees QTc Int : 446 ms Sinus rhythm with Premature supraventricular complexes Otherwise normal ECG No previous ECGs available Confirmed by DR. Marcie CUMMINS ([id number]) on 06/23/2020 7:08:24 AM Referred By: NENA Confirmed By:DR. Marcie CUMMINS
== END 2020-06-21 06:39 | disposition home or self-care (01) ==
LOC: LABBT 06:38
PROVIDERS: ATTEND Urology
DX: Z01.818 Encounter for other preprocedural examination (principal); Z20.828 Contact with and (suspected) exposure to other viral communicable diseases; Z12.5 Encounter for screening for malignant neoplasm of prostate; C67.9 Malignant neoplasm of bladder, unspecified; N40.1 Benign prostatic hyperplasia with lower urinary tract symptoms; R35.1 Nocturia; R39.15 Urgency of urination; N20.0 Calculus of kidney; N28.1 Cyst of kidney, acquired; K59.00 Constipation, unspecified; R82.89 Other abnormal findings on cytological and histological examination of urine; Z87.891 Personal history of nicotine dependence
CPT/HCPCS: 80048; 81001; 85027; 85610; 85730; 86850; 86900; 86901; 87086; 87635; 93005; 93010; U0003

== ENCOUNTER 2020-06-26 06:31 | Day surgery (SDC) | payer BC ==
[2020-06-23 09:22] VITALS: BMI 38.4
[2020-06-26] MEDS ORDERED: Levofloxacin 500 mg/D5W 100 ml Premix Bag ONE (06:45)
[2020-06-26] MEDS ORDERED: Fentanyl 100 MCG/2 ML VIAL ONE (08:32)
[2020-06-26] MEDS ORDERED: Midazolam HCl 2 mg/2 ml Vial ONE (08:33)
[2020-06-26] MEDS ORDERED: Iothalamate Meglumine 60% 50 ML VIAL FS ONE (08:34)
[2020-06-26] MEDS ORDERED: Phenazopyridine HCl 100 MG TAB ONE (09:33)
--- NOTE | 2020-06-26 10:00 | RAD ---
RETROGRADE PYELOGRAM: Date: 06/26/2020 HISTORY: Bladder cancer. FINDINGS: A series of 5 images show contrasted injected into nondilated collecting systems. No filling defects are appreciated. Portions of the distal right ureter are not well visualized. IMPRESSION: Unremarkable bilateral retrograde pyelogram. POS: FRANK
--- NOTE | 2020-06-26 10:23 | OP ---
DATE OF PROCEDURE: 06/26/2020 PCP: Dr. Jenaro Knight. PREOPERATIVE DIAGNOSES: 1. A 65-year-old male with history of ongoing tobacco abuse. 2. History of transitional cell carcinoma of the bladder, initially diagnosed in November 2017, superficial low-grade. 3. History of BPH. 4. Recent cystoscopy demonstrating nonspecific inflammatory lesion, positive cytology. POSTOPERATIVE DIAGNOSES: 1. A 65-year-old male with history of ongoing tobacco abuse. 2. History of transitional cell carcinoma of the bladder, initially diagnosed in November 2017, superficial low-grade. 3. History of BPH. 4. Recent cystoscopy demonstrating nonspecific inflammatory lesion, positive cytology. PROCEDURES PERFORMED: Cystoscopy, bilateral retrograde pyelograms. ANESTHESIA: LMA, general. COMPLICATIONS: None apparent. SPECIMEN: None. DISPOSITION: To recovery room in stable condition. INTRAOPERATIVE FINDINGS: 1. Status post UroLift, there was an adequate anterior channel created, some residual bilobar hyperplasia, however, improved from pre-UroLift. 2. Bladder demonstrates no evidence of bladder lesion or tumor of concern. Previous resection site noted @ bilateral lateral shannon with no evidence of tumor recurrence. 3. Trigonal telangiectasia, however, no evidence of inflammatory lesion of concern. 4. Bilateral clear efflux of urine. 5. Bilateral retrograde pyelogram without evidence of filling defect. 6: Suggestion of early nonobstructing proximal penile/bulbar urethra not warranting treatment INDICATIONS FOR PROCEDURE AND HISTORY: Mr. Barnes is a 65-year-old male with history of ongoing tobacco abuse. Despite multiple consultations regarding direct carcinogenic effect resulting in bladder cancer, he continues to smoke. He underwent cystoscopy, May 18, demonstrating an inflammatory lesion in the posterior wall. I informed him regarding exam under anesthesia, however, he desired to defer due to social engagements. He has had a UroLift, however, states that without Rapaflo, his urinary flow is somewhat sluggish, therefore, continues to be on Rapaflo. He presents today for exam under anesthesia, bladder biopsy if indicated, bilateral retrograde. Risks and complications of the procedure have been discussed with him in detail including, but not limited to, bleeding, pain, infection, injury to adjacent organs, urosepsis, bladder, renal, kidney injury. DESCRIPTION OF PROCEDURE: After an informed consent was signed, the patient was taken to the operating room, placed in a dorsal lithotomy position with the genital area prepped and draped in the usual surgical sterile fashion. A 21-Syriac cystoscope was utilized for cystoscopy, which demonstrated suggestion of early annular stricture at the proximal penile bulbar urethra, however, nonobstructing, non-warranting treatment. His prostatic urethra was staged, demonstrating changes consistent with UroLift. There was reduction of laterally obstructing lobes, his bladder neck viewed demonstrates an anterior channel, has a mild curtain effect, however, it appears to be patent with adequate anterior channel. No exposed implants were seen. Bladder was entered. There was prior resection, bladder biopsy changes at the lateral wall. However, using a 30 and 70-degree lens, we did a thorough cystoscopy, which demonstrated no evidence of bladder lesion of concern. He does have some prominent blood vessels in the trigone consistent with telangiectasia of the trigone, however, no inflammatory or erythematous lesion concerning for malignancy. Therefore, we did not do a biopsy. Bilateral UOs were in normal orthotopic position with clear efflux of urine. Open-ended catheter was utilized for retrograde pyelogram, which demonstrated no evidence of filling defect with prompt excretion of contrast. He tolerated the procedure well and transported to the recovery room in stable condition. Tobacco cessation is again advised and I will schedule him for 3-month interval cystoscopy, with labs two weeks prior including repeat FISH cytology. Job ID: [id number] [facility]
[2020-06-26] MEDS ORDERED: PROPOFOL 200 MG/20 ML VIAL ONE (10:28)
[2020-06-26] MEDS ORDERED: Dexamethasone 20 MG/5 ML VIAL ONE (10:28)
[2020-06-26] MEDS ORDERED: Lidocaine 1% PF 5 ML VIAL ONE (10:28)
[2020-06-26] MEDS ORDERED: Ondansetron PF 4 MG/2 ML Vial ONE (10:28)
== END 2020-06-26 10:45 | disposition home or self-care (01) ==
LOC: SDC 06:31
PROVIDERS: ATTEND Urology
PROC: BT14ZZZ Fluoroscopy of Kidneys, Ureters and Bladder (ICD-10-PCS; principal; 2020-06-26)
DX: C67.9 Malignant neoplasm of bladder, unspecified (principal); N40.0 Benign prostatic hyperplasia without lower urinary tract symptoms; Z79.899 Other long term (current) drug therapy
CPT/HCPCS: 74420; 86850; 86900; 86901; J1100; J1956; J2250; J2405; J2704; J3010

== ENCOUNTER 2023-03-31 17:30 | Outpatient (CLI) | payer MEDICARE, BC | END 2023-03-31 17:31 | disposition home or self-care (01) | LOC: SLEEPLAB 17:30 | PROVIDERS: ATTEND Family Medicine | DX: G47.33 Obstructive sleep apnea (adult) (pediatric) (principal); G47.10 Hypersomnia, unspecified; G47.9 Sleep disorder, unspecified; R53.83 Other fatigue; E66.9 Obesity, unspecified; R06.83 Snoring; G47.00 Insomnia, unspecified; I10 Essential (primary) hypertension; Z68.37 Body mass index [BMI] 37.0-37.9, adult | CPT/HCPCS: 95800 ==